=== PATIENT | female | born 1950 | race Hispanic/Latino ===

== ENCOUNTER → 2018-08-31 | Outpatient (CLI) | payer MEDICARE ==
[~2018-08-31] MED LIST: ACET650T24 PO; ASPI-1012 PO; ATOR10TA69 PO; CHLO4TAB32 PO; FERR324T10 PO; GABA-529 PO; GABA-531 PO; HYDR-2132 PO; LORA2TAB2 PO
== END | disposition home or self-care (01) ==
LOC: OIH 13:02
PROVIDERS: ATTEND Anesthesiology Pain Medicine
DX: M47.816 Spondylosis without myelopathy or radiculopathy, lumbar region (principal); M41.85 Other forms of scoliosis, thoracolumbar region; M25.78 Osteophyte, vertebrae
CPT/HCPCS: 72114

== ENCOUNTER 2022-07-31 11:41 | Emergency (ER) | payer MEDICARE ==
[~2022-07-31] VITALS: Ht 162.6 cm; Wt 79.8 kg
[~2022-07-31 11:41] MED LIST changes: +ACET-3204 PO; -ACET650T24 PO
[2022-07-31 11:50] VITALS: BP 114/59
[2022-07-31] MEDS ORDERED: LIDOCAINE 5% TOPICAL PATCH TP ONE (12:30)
== END 2022-07-31 13:39 | disposition home or self-care (01) ==
LOC: EDH 11:41
DX: G89.29 Other chronic pain (principal); M25.561 Pain in right knee; M19.90 Unspecified osteoarthritis, unspecified site; Z79.899 Other long term (current) drug therapy; Z79.82 Long term (current) use of aspirin
CPT/HCPCS: 73562